=== PATIENT | female | born 1950 | race Caucasian/White ===

== ENCOUNTER 2017-03-09 15:12 | Emergency (ER) | payer OTHER ==
[2017-03-09 16:53] LABS: BASOPHIL % 0.3 % (0-2); PLATELET COUNT 245 x10^3mcL (130-400); RED CELL DISTRIBUTION WIDTH 13.5 % (11.5-14.5)
[2017-03-09 16:58] LABS: CALCIUM 9.1 mg/dL (8.5-10.1); CARBON DIOXIDE 22.2 mmol/L (21-32); CHLORIDE SERUM 110 mmol/L (98-107); CREATININE SERUM 0.8 mg/dL (0.6-1.0); GFR1 > 60 mL/min; GLUCOSE SERUM 111 mg/dL (74-106); POTASSIUM SERUM 3.7 mmol/L (3.5-5.1); SODIUM SERUM 146 mmol/L (136-145)
[2017-03-09 17:04] LABS: ALBUMIN 3.5 g/dL (3.4-5.0); ALKALINE PHOSPHATASE 102 U/L (46-116); ALT/SGPT 27 U/L (14-59); AST/SGOT 23 U/L (15-37); BILIRUBIN TOTAL 0.64 mg/dL (0.20-1.00); TOTAL PROTEIN, SERUM 7.4 g/dL (6.4-8.2)
[2017-03-09 18:15] VITALS: BP 156/89
== END 2017-03-09 18:15 | disposition home or self-care (01) ==
LOC: ED 15:12
PROVIDERS: Emergency Medicine
DX: G47.30 Sleep apnea, unspecified (principal); R55 Syncope and collapse; R07.89 Other chest pain; F41.9 Anxiety disorder, unspecified
CPT/HCPCS: 36415; 83880; 85378; Q0092

== ENCOUNTER 2018-10-21 01:18 | Inpatient (IN) | payer OTHER ==
[~2018-10-21] VITALS: Ht 152.4 cm; Wt 80.7 kg
[2018-10-21 02:05] LABS: BASOPHIL % 0.4 % (0-2); PLATELET COUNT 245 x10^3mcL (130-400); RED CELL DISTRIBUTION WIDTH 13.4 % (11.5-14.5)
[2018-10-21 02:14] LABS: CALCIUM 8.7 mg/dL (8.5-10.1); CARBON DIOXIDE 28.6 mmol/L (21-32); CHLORIDE SERUM 107 mmol/L (98-107); CREATININE SERUM 0.9 mg/dL (0.6-1.0); GFR1 > 60 mL/min; GLUCOSE SERUM 150 mg/dL (74-106); POTASSIUM SERUM 3.2 mmol/L (3.5-5.1); SODIUM SERUM 146 mmol/L (136-145)
[2018-10-21 02:27] LABS: ALKALINE PHOSPHATASE 113 U/L (46-116); ALT/SGPT 35 U/L (14-59); AST/SGOT 31 U/L (15-37); FREE T4 1.19 ng/dL (0.76-1.46); LIPASE 149 IU/L (73-393); MAGNESIUM 2.2 mg/dL (1.8-2.4); TOTAL PROTEIN, SERUM 7.3 g/dL (6.4-8.2)
[2018-10-21 02:30] LABS: ALBUMIN 3.3 g/dL (3.4-5.0)
[2018-10-21 03:03] LABS: microscopic required? NO
[2018-10-21 03:40] LABS: urine erythrocyte NEGATIVE (NEGATIVE)
[2018-10-21] MEDS ORDERED: ZES10 (06:15)
[2018-10-21 07:33] LABS: PHOSPHOROUS 1.9 mg/dL (2.5-4.9)
[2018-10-21 11:33] LABS: BASOPHIL % 0.6 % (0-2); PLATELET COUNT 234 x10^3mcL (130-400); RED CELL DISTRIBUTION WIDTH 13.3 % (11.5-14.5)
[2018-10-21 11:50] LABS: CALCIUM 8.7 mg/dL (8.5-10.1); CARBON DIOXIDE 26.6 mmol/L (21-32); CHLORIDE SERUM 108 mmol/L (98-107); CREATININE SERUM 0.7 mg/dL (0.6-1.0); GFR1 > 60 mL/min; GLUCOSE SERUM 108 mg/dL (74-106); POTASSIUM SERUM 3.8 mmol/L (3.5-5.1); SODIUM SERUM 142 mmol/L (136-145)
[2018-10-21 13:01] LABS: T3 TOTAL 1.42 ng/mL
[2018-10-21 13:11] LABS: FREE T4 1.23 ng/dL (0.76-1.46); FREE THYROXINE INDEX 3.8 ug/dL (1.4-4.5); T4(THYROXINE) 10.6 ug/dL (4.7-13.3)
[2018-10-21 13:45] VITALS: BP 151/70
[2018-10-21 15:43] VITALS: BP 148/64
[2018-10-21 17:45] VITALS: BP 173/82
[2018-10-21 21:08] VITALS: BP 169/79
[2018-10-21 23:08] VITALS: BP 150/61
[2018-10-22] VITALS (10 sets, daily range): BP systolic 132–175; BP diastolic 62–85
[2018-10-22 06:56] LABS: BASOPHIL % 0.4 % (0-2); PLATELET COUNT 220 x10^3mcL (130-400); RED CELL DISTRIBUTION WIDTH 13.4 % (11.5-14.5)
[2018-10-22 07:13] LABS: CALCIUM 8.5 mg/dL (8.5-10.1); CARBON DIOXIDE 23.9 mmol/L (21-32); CHLORIDE SERUM 107 mmol/L (98-107); CREATININE SERUM 0.6 mg/dL (0.6-1.0); GFR1 > 60 mL/min; GLUCOSE SERUM 110 mg/dL (74-106); PHOSPHOROUS 3.4 mg/dL (2.5-4.9); POTASSIUM SERUM 3.5 mmol/L (3.5-5.1); SODIUM SERUM 141 mmol/L (136-145)
[2018-10-22] MEDS ORDERED: GOOD SENSE ASPI81 M3 PO (08:39)
[2018-10-22] MEDS ORDERED: TOPROL XL25 MG PO (08:39)
[2018-10-22] MEDS ORDERED: ZITHROMAX1 GM/Packe PO (11:52)
[2018-10-23 05:38] VITALS: BP 147/65
[2018-10-23 06:30] LABS: CARBON DIOXIDE 26.1 mmol/L (21-32); CHLORIDE SERUM 106 mmol/L (98-107); CREATININE SERUM 0.8 mg/dL (0.6-1.0); GFR1 > 60 mL/min; GLUCOSE SERUM 91 mg/dL (74-106); POTASSIUM SERUM 3.8 mmol/L (3.5-5.1); SODIUM SERUM 141 mmol/L (136-145)
[2018-10-23 06:59] LABS: BASOPHIL % 0.3 % (0-2); PLATELET COUNT 261 x10^3mcL (130-400); RED CELL DISTRIBUTION WIDTH 13.5 % (11.5-14.5)
[2018-10-23 08:48] VITALS: BP 145/68
[2018-10-23 10:33] VITALS: BP 138/60
[2018-10-23] MEDS ORDERED: ZESTRIL20 MG PO (11:36)
[2018-10-23 12:09] VITALS: BP 146/71
[2018-10-23 13:01] VITALS: BP 146/71
== END 2018-10-23 13:33 | disposition home or self-care (01) | DRG 309 ==
LOC: ED 01:18 → DU 05:16 → MU 10-23 09:17
PROVIDERS: Emergency Medicine; ADMIT Internal Medicine
DX: I48.91 Unspecified atrial fibrillation (principal); E87.0 Hyperosmolality and hypernatremia; E44.1 Mild protein-calorie malnutrition; I10 Essential (primary) hypertension; E87.6 Hypokalemia; E78.5 Hyperlipidemia, unspecified; E83.39 Other disorders of phosphorus metabolism; R73.03 Prediabetes
CPT/HCPCS: 83880; 84439; 85378; J0360; J2405; J3490; J7030; Q0092; Q9967